=== PATIENT | female | born 1985 | race African-American/Black ===

== ENCOUNTER 2017-05-30 12:16 | Emergency (ER) | payer MEDICAID ==
[~2017-05-30] VITALS: Ht 160 cm; Wt 86.0 kg
[2017-05-30 15:21] VITALS: BP 132/95
== END 2017-05-30 15:22 | disposition home or self-care (01) ==
LOC: ER 14:01
DX: H11.32 Conjunctival hemorrhage, left eye (principal); Z98.890 Other specified postprocedural states
CPT/HCPCS: 99281

== ENCOUNTER 2017-10-25 11:28 | Emergency (ER) | payer MEDICAID ==
[~2017-10-25] VITALS: Ht 160 cm; Wt 95.0 kg
[2017-10-25] MEDS ORDERED: MORPHINE SULFATE 4 MG/ML CPJ (NOT FOR IM USE) IV ONE (17:30)
[2017-10-25] MEDS ORDERED: SODIUM CHLORIDE 0.9% 1,000 ML IV ONE (17:30)
[2017-10-25] MEDS ORDERED: CEFTRIAXONE 1 G PREMIX 50 ML IV ONE (17:30)
[2017-10-25] MEDS ORDERED: ONDANSETRON HCL 4MG/2ML INJ IV ONE (17:30)
[2017-10-25 18:00] VITALS: BP 115/74
== END 2017-10-25 19:21 | disposition left against medical advice (07) ==
LOC: ER 11:28
DX: L03.317 Cellulitis of buttock (principal); Z98.890 Other specified postprocedural states
CPT/HCPCS: 99283; J7030; J2270; J2405